=== PATIENT | male | born 1980 | race Caucasian/White ===

== ENCOUNTER 2018-06-02 19:08 | Emergency (ER) | payer BC ==
[2018-06-02 20:00] VITALS: PULSE 66; RESP 16
[2018-06-02 21:13] VITALS: BP 125/77; TEMP 97.6; O2SAT 97
== END 2018-06-02 19:52 | disposition home or self-care (01) ==
LOC: ED 19:08
DX: S43.422A Sprain of left rotator cuff capsule, initial encounter (principal); V86.59XA Driver of other special all-terrain or other off-road motor vehicle injured in nontraffic accident, initial encounter; R40.2412 Glasgow coma scale score 13-15, at arrival to emergency department
CPT/HCPCS: 99282

== ENCOUNTER 2018-07-01 10:11 | Outpatient (CLI) | payer BC ==
[2018-06-02 21:13] VITALS: O2SAT 97
== END 2018-07-01 10:12 | disposition home or self-care (01) ==
LOC: CONVCARE 10:11
PROVIDERS: ATTEND Orthopaedic Surgery
DX: S42.032A Displaced fracture of lateral end of left clavicle, initial encounter for closed fracture (principal); V86.99XA Unspecified occupant of other special all-terrain or other off-road motor vehicle injured in nontraffic accident, initial encounter
CPT/HCPCS: 73030

== ENCOUNTER 2018-07-29 10:32 | Outpatient (CLI) | payer BC ==
[2018-06-02 21:13] VITALS: O2SAT 97
== END 2018-07-29 10:33 | disposition home or self-care (01) ==
LOC: CONVCARE 10:32
PROVIDERS: ATTEND Orthopaedic Surgery
DX: S42.032D Displaced fracture of lateral end of left clavicle, subsequent encounter for fracture with routine healing (principal)
CPT/HCPCS: 73000

== ENCOUNTER 2018-09-23 08:53 | Outpatient (CLI) | payer BC ==
[2018-06-02 21:13] VITALS: O2SAT 97
== END 2018-09-23 08:54 | disposition home or self-care (01) ==
LOC: CONVCARE 08:53
PROVIDERS: ATTEND Orthopaedic Surgery
DX: S42.032D Displaced fracture of lateral end of left clavicle, subsequent encounter for fracture with routine healing (principal)
CPT/HCPCS: 73000